=== PATIENT | female | born 1985 | race African-American/Black ===

== ENCOUNTER 2021-06-06 10:08 | Emergency (ER) | payer OTHER ==
[~2021-06-06] VITALS: Ht 165.1 cm; Wt 84.0 kg
[2021-06-06 10:43] LABS: BASOPHILS % 0.6 % (0.0-2.0); EOSINOPHILS % 1.9 % (0.0-5.0); HEMATOCRIT. 37.1 % (36.0-48.0); HEMOGLOBIN. 12.4 g/dL (12.0-16.0); MEAN CORPUSCULAR HEMOGLOBIN 30.2 pg (28.0-32.0); MEAN CORPUSCULAR VOLUME 90.7 fL (81.0-99.0); MONOCYTES % 10.5 % (2.0-8.0); PLATELET 232 x1000/uL (130-400); RED BLOOD CELL COUNT 4.09 mill/uL (4.2-5.4); RED CELL DISTRIBUTION WIDTH 15.2 % (11.6-14.6)
[2021-06-06 10:49] LABS: CHLORIDE 103 mEq/L (98-107)
[2021-06-06] MEDS ORDERED: FAMOTIDINE 20MG TABLET PO NR (11:15)
[2021-06-06] MEDS ORDERED: MAGNESIUM/ALUMINUM HYDROXIDE/SIMETHICONE 30ML UDC PO NR (11:15)
[2021-06-06] MEDS ORDERED: LORAZEPAM 0.5MG TABLET PO NR (11:15)
[2021-06-06 11:45] LABS: HCG SCREEN NEGATIVE
[2021-06-06] MEDS ORDERED: VISCOUS LIDOCAINE 2% 15 ML UDC PO NR (12:00)
[2021-06-06] MEDS ORDERED: IOHEXOL-350 100 ML BOTTLE ONE (15:17)
[2021-06-06] MEDS ORDERED: HYDR-3735 MT (15:35)
[2021-06-06] MEDS ORDERED: MAG355OR21 MT (15:35)
[2021-06-06 17:15] VITALS: BP 118/74
== END 2021-06-06 17:16 | disposition home or self-care (01) ==
LOC: ER 10:08
DX: R07.89 Other chest pain (principal); F17.290 Nicotine dependence, other tobacco product, uncomplicated; F14.10 Cocaine abuse, uncomplicated; F12.10 Cannabis abuse, uncomplicated; Z98.890 Other specified postprocedural states
CPT/HCPCS: 36415; 71045; 71275; 76705; 80053; 83690; 83880; 84484; 84703; 85025; 85379; 93005; 99285; Q9967

== ENCOUNTER 2022-09-16 07:29 | Emergency (ER) | payer OTHER ==
[~2022-09-16] VITALS: Ht 165.1 cm; Wt 83.0 kg
[~2022-09-16 07:29] MED LIST: HYDR-3735 MT; MAG355OR21 MT
[2022-09-16 08:31] LABS: BASOPHILS % 0.7 % (0.0-2.0); HEMOGLOBIN. 11.9 g/dL (12.0-16.0); LYMPHOCYTES % 30.1 % (20.0-50.0); MEAN CORPUSCULAR HEMOGLOBIN 30.5 pg (28.0-32.0); MEAN CORPUSCULAR VOLUME 91.9 fL (81.0-99.0); MEAN PLATELET VOLUME 9.3 fl (7.4-10.4); MONOCYTES % 9.3 % (2.0-8.0); NEUTROPHILS % 58.9 % (40.0-76.0); PLATELET 251 x1000/uL (130-400); RED BLOOD CELL COUNT 3.91 mill/uL (4.2-5.4); RED CELL DISTRIBUTION WIDTH 14.7 % (11.6-14.6)
[2022-09-16 08:35] LABS: CHLORIDE 105 mEq/L (98-107)
[2022-09-16 08:55] LABS: B-HCG QUANTITATIVE 24726 mIU/mL (<3)
[2022-09-16 09:29] LABS: CLARITY URINE CLEAR (CLEAR); COLOR URINE DARK YELLOW (YELLOW); KETONES URINE NEGATIVE (NEGATIVE); LEUKOCYTE ESTERASE URINE NEGATIVE (NEGATIVE); NITRITE URINE NEGATIVE (NEGATIVE); OCCULT BLOOD URINE NEGATIVE (NEGATIVE); PH URINE 7.5 (4.5-8.0); PROTEIN URINE NEGATIVE (NEGATIVE); SPECIFIC GRAVITY URINE 1.022 (1.005-1.030); UROBILINOGEN URINE 0.2 E.U./dL (0.2-1.0)
[2022-09-16 09:30] VITALS: BP 102/64
== END 2022-09-16 10:52 | disposition home or self-care (01) ==
LOC: ER 07:29
DX: O20.0 Threatened abortion (principal); Z3A.01 Less than 8 weeks gestation of pregnancy; F12.10 Cannabis abuse, uncomplicated; F14.10 Cocaine abuse, uncomplicated
CPT/HCPCS: 36415; 76801; 76817; 80053; 81003; 81025; 84702; 85025; 86850; 86900; 86901; 99284; Z7610

== ENCOUNTER 2022-12-18 04:51 | Emergency (ER) | payer OTHER, MEDICAID ==
[~2022-12-18] VITALS: Ht 165.1 cm; Wt 86.7 kg
[2022-12-18 04:59] VITALS: BP 117/67; PULSE 103; RESP 16; TEMP 98.6; O2SAT 100
[2022-12-18 05:33] LABS: BASOPHILS % 0.3 % (0.0-2.0); EOSINOPHILS % 1.4 % (0.0-5.0); HEMATOCRIT. 31.9 % (36.0-48.0); HEMOGLOBIN. 10.7 g/dL (12.0-16.0); LYMPHOCYTES % 19.3 % (20.0-50.0); MEAN CORPUSCULAR HEMOGLOBIN 31.2 pg (28.0-32.0); MEAN CORPUSCULAR VOLUME 93.4 fL (81.0-99.0); MEAN PLATELET VOLUME 8.8 fl (7.4-10.4); MONOCYTES % 8.6 % (2.0-8.0); NEUTROPHILS % 70.4 % (40.0-76.0); PLATELET 228 x1000/uL (130-400); RED BLOOD CELL COUNT 3.41 mill/uL (4.2-5.4); RED CELL DISTRIBUTION WIDTH 14.9 % (11.6-14.6)
[2022-12-18 05:36] LABS: CHLORIDE 109 mEq/L (98-107)
[2022-12-18 06:15] LABS: B-HCG QUANTITATIVE 9723 mIU/mL (<3)
[2022-12-18 06:34] LABS: CLARITY URINE CLEAR (CLEAR); COLOR URINE YELLOW (YELLOW); KETONES URINE NEGATIVE (NEGATIVE); LEUKOCYTE ESTERASE URINE NEGATIVE (NEGATIVE); NITRITE URINE NEGATIVE (NEGATIVE); OCCULT BLOOD URINE NEGATIVE (NEGATIVE); PROTEIN URINE NEGATIVE (NEGATIVE); SPECIFIC GRAVITY URINE 1.025 (1.005-1.030)
== END 2022-12-18 09:03 | disposition left against medical advice (07) ==
LOC: ER 05:48
DX: Z53.21 Procedure and treatment not carried out due to patient leaving prior to being seen by health care provider (principal)
CPT/HCPCS: 36415; 80053; 81003; 81025; 84702; 85025; 99281